=== PATIENT | male | born 1980 | race Caucasian/White ===

== ENCOUNTER 2021-06-24 11:35 | Inpatient (IN) | payer OTHER ==
[~2021-06-24] VITALS: Ht 185.4 cm; Wt 99.3 kg
--- NOTE | ~2021-06-24 | EMS ---
[place] [address] EMS Patient Care Report Name: LJ TOMAS Room #: 204-P [facility]..#: [id number] Admission: 06/24/21 Attend Phys: Alysa Shetty MD Discharge: 06/25/21 Date of : 78 Report #: [id number] THIS REPORT FOR: //name// Report Transmitted: 06/29/2021 14:07 EMS Care Summary [place], [place]/[facility] Incident [id number] @ 06/24/2021 11:00 Incident Location [facility] [address] [place] [address] Patient LJ TOMAS Male, 41 Years 1980 Patient Address [address] [place] [address] Patient History Kidney/Renal Failure, Patient Allergies No known allergies, Patient Medications None Reported, Chief Complaint CHEST PAIN Disposition Transported Lights/[facility] Dispatch Reason Breathing Problem Transported To [facility] Narrative M42 WAS DISPATCHED FOR BREATHING PROBLEMS. UPN ARRIVAL THE PT WAS SITTING ON THE SIDE OF HIS BED. THE PT WAS IN OBVIOUS DISCOMFORT. THE PT DESCRIBED A SHARP AND CONSTANT PAIN IN THE MIDDLE OF HIS CHEST THAT STARTED "THIS MORNING". THE PT SAID HE HAD NEVER HAD THAT FEELING BEFORE AND [place] [address] EMS Patient Care Report Name: LJ TOMAS Room #: 204-P DIS IN [facility]#: [id number] Admission: 06/24/21 Attend Phys: Alysa Shetty MD Discharge: 06/25/21 Date of : [birth year] Report #: [id number] HISTORY. THE PT HAD RENAL FAILURE AND HAD MISSED HIS LAST DIALYSIS APPOINTMENT TWO DAYS PRIOR. THE PT ALSO HAD SWELLING TO HIS LOWER EXTREMITIES THAT HE SAID HAD BEEN THERE FOR THE PAST WEEK BUT WAS NOT NORMALLY LIKE THAT. A 12 LEAD WAS DONE WHILE THE PT WAS STILL IN BED. THE 12 LEAD DID NOT SHOW ANY SIGNIFICANT FINDINGS. THE PT WAS MOVED TO THE AMBULANCE. A SECOND 12 LEAD WAS TAKEN IN THE AMBULANCE THAT REVEALED A POSSIBLE ANTEROLATERAL NH. THE CHEST PAIN/CARDIAC EVENT ALGORITHM WAS FOLLOWED THE PT WAS TRANSPORTED TO THE HOSPITAL. THE PT WAS TRANSFERRED TO HOSPITAL STAFF WITH A REPORT. EMS RETURNED TO SERVICE. Initial Vitals @11:15P: 101,Pain: 4/10,GCS: 15,SpO2: 90,NH Suspected: false @11:23P: 104,R: 18,Pain: 4/10,GCS: 15,SpO2: 87,NH Suspected: true @11:15P: 101,R: 18,Pain: 4/10,GCS: 15,SpO2: 94,NH Suspected: true @11:29P: 103,R: 18,BP: 95/48,Pain: 4/10,GCS: 15,SpO2: 94,Revised Trauma: 12,NH Suspected: true @11:07P: 103,R: 18,BP: 109/66,Pain: 4/10,GCS: 15,CO: 0,SpO2: 96,Revised Trauma: 12, @11:07P: 102,R: 20,Pain: 4/10,GCS: 15,SpO2: 94,NH Suspected: false Assessments @11:07MENTAL:Person Oriented,Place Oriented,Time Oriented,Event Oriented,SKIN:HEENT:Head/Face: No Abnormalities,Eyes: No Abnormalities,Neck/Airway: No Abnormalities,LUNG SOUNDS:General: No Abnormalities,ABDOMEN:General: No Abnormalities,PELVIS//GI:No Abnormalities,EXTREMITIES:Right Leg: Edema,Left Leg: Edema,Left Arm: Other,Right Arm: No Abnormalities,PULSE:Radial: 2+ Normal,NEURO: Impression Chest Pain / Discomfort Procedures @11:07 12-Lead ECG Response: UnchangedSucceeded @11:15 12-Lead ECG Response: UnchangedSucceeded @11:23 12-Lead ECG Response: UnchangedSucceeded @11:07 3-Lead ECG Response: UnchangedSucceeded @11:07 ALS Assessment Response: UnchangedSucceeded @11:16 Aspirin - 324 Milligrams (mg) - Oral Response: Unchanged @11:17 Oxygen FlowRate: 4 Device: Nasal Cannula (NC) Response: UnchangedSucceeded @11:16 IV Therapy - Saline Lock 0cc (22 ga) Site: Hand-Right Response: UnchangedFailed Timeline 10:59,Call Received 10:59,Dispatch Notified [address] [address] EMS Patient Care Report Name: LJ TOMAS Room #: 204-P [facility]#: [id number] Admission: 06/24/21 Attend Phys: Alysa Shetty MD Discharge: 06/25/21 Date of : [birth year] Report #: [id number] 11:00,Dispatched 11:02,En Route 11:06,On Scene 11:07,At Patient 11:07,ALS Assessment,Response: UnchangedSucceeded, 11:07,BP: 109/66 M,PULSE: 103,RR: 18 R,SPO2: 96 Ox,ETCO2: ,BG: ,PAIN: 4,GCS: 15, 11:07,12-Lead ECG,Response: UnchangedSucceeded, 11:07,3-Lead ECG,Response: UnchangedSucceeded, 11:07,BP: / M,PULSE: 102,RR: 20 R,SPO2: 94 Ox,ETCO2: ,BG: ,PAIN: 4,GCS: 15, 11:15,BP: / M,PULSE: 101,RR: R,SPO2: 90 Ox,ETCO2: ,BG: ,PAIN: 4,GCS: 15, 11:15,12-Lead ECG,Response: UnchangedSucceeded, 11:15,BP: / M,PULSE: 101,RR: 18 R,SPO2: 94 Ox,ETCO2: ,BG: ,PAIN: 4,GCS: 15, 11:16,Aspirin - 324 Milligrams (mg) - Oral,Response: Unchanged 11:16,IV Therapy - Saline Lock 0cc 22 ga Site: Hand-Right,Response: UnchangedFailed, 11:17,Oxygen FlowRate: 4 Device: Nasal Cannula (NC) Response: UnchangedSucceeded, 11:23,12-Lead ECG,Response: UnchangedSucceeded, 11:23,BP: / M,PULSE: 104,RR: 18 R,SPO2: 87 Ox,ETCO2: ,BG: ,PAIN: 4,GCS: 15, 11:24,Depart Scene 11:29,BP: 95/48 M,PULSE: 103,RR: 18 R,SPO2: 94 Ox,ETCO2: ,BG: ,PAIN: 4,GCS: 15, 11:32,At Destination 11:44,Call Closed Disclaimer v1.1 Copyright 2020 [employer] This EMS Care Summary contains data elements from the applicable legal record (which may be displayed differently). It is designed to provide pertinent information for the following purposes: continuity of care, clinical quality, and state data reporting. The complete legal record is available to ED staff and administrators of the receiving hospital in ES's Patient Tracker. All data is provided "as is."
[2021-06-24 11:36] VITALS: BP 123/83
--- NOTE | 2021-06-24 12:04 | NUR ---
UNABLE TO OBTAIN IV ACCESS. LAB AND IV TEAM CONTACTED.
[2021-06-24 12:41] LABS: ABSOLUTE NEUTROPHILS 6.7 thou/uL (1.4-8.2); BASOPHILS 0.5 % (0.0-2.0); EOSINOPHILS 0.9 % (0.0-3.0); HEMATOCRIT 28.4 % (42.0-52.0); LYMPHOCYTES 10.7 % (24.0-44.0); MCH 30.6 pg (26.0-34.0); MCHC 31.6 g/dL (28.0-37.0); MCV 96.7 fL (80.0-100.0); MONOCYTES 8.4 % (1.0-8.0); PLATELET COUNT 258 thou/uL (150-400); POLYS 79.5 % (36.0-66.0); RBC 2.93 mil/uL (4.50-6.00); RDW 16.2 % (10.5-14.5); WBC 8.4 thou/uL (4.0-11.0)
[2021-06-24 13:14] LABS: ALBUMIN 2.8 g/dL (3.4-5.0); CALCIUM 9.2 mg/dL (8.5-10.1); CREATININE 11.1 mg/dL (0.7-1.3); MAGNESIUM 2.7 mg/dL (1.8-2.4); PHOSPHORUS 9.4 mg/dL (2.6-4.7); TOTAL BILIRUBIN 0.7 mg/dL (0.2-1.0)
[2021-06-24 13:22] LABS: POTASSIUM 6.6 mmol/L (3.5-5.1)
[2021-06-24] MEDS ORDERED: ELIQUIS5 MG PO (14:16)
[2021-06-24] MEDS ORDERED: GABAPENTIN 100100 MG PO (14:20)
[2021-06-24 14:31] VITALS: BP 95/72
--- NOTE | 2021-06-24 14:44 | NUR ---
RT CALLED TO INQUIRE ABOUT THE BREATHING TREATMENT
--- NOTE | 2021-06-24 21:45 | NUR ---
attempted to call report to [facility] , not aware admit was coming to call back.
--- NOTE | 2021-06-24 21:51 | NUR ---
assessment pt a/o x4. writhing in pain. had a hydrocodone at 1700. dialysis completed av fistula in upper left arm with good bruit and trill. telemetry reading st with rates in 150's. reported soa and 2 liters o2 applied. pt to transfer to room 204.
--- NOTE | 2021-06-24 22:18 | NUR ---
Report given to Adele BOYER from [facility] pt transferred via cart to room 204. Cellphone, wallet, and orthopedic shoes placed in personal belongings bag and sent to unit with pt.
[2021-06-24 22:34] VITALS: BP 138/94
[2021-06-24] MEDS ORDERED: MORPHINE SULFAT30 M2 PO (22:36)
[2021-06-24] MEDS ORDERED: PERCOCET 10-321 EAC1 PO (22:37)
[2021-06-24] MEDS ORDERED: LIPITOR10 MG PO (22:38)
[2021-06-24] MEDS ORDERED: COREG25 M1 PO (22:39)
[2021-06-24] MEDS ORDERED: NORVASC10 MG PO (22:41)
[2021-06-25 00:14] VITALS: BP 121/96
[2021-06-25 01:06] LABS: HEP B SURFACE Ab(ANTI-HBS Reactive (()); HEPATITIS B SURFACE AG Negative (Negative)
[2021-06-25 01:32] LABS: HEMATOCRIT 27.3 % (42.0-52.0); HEMOGLOBIN 8.6 gm/dL (14.0-18.0); MCHC 31.5 g/dL (28.0-37.0); MCV 98.4 fL (80.0-100.0); RBC 2.77 mil/uL (4.50-6.00); RDW 16.6 % (10.5-14.5)
[2021-06-25 01:49] LABS: CALCIUM 9.1 mg/dL (8.5-10.1)
[2021-06-25 01:53] LABS: CREATININE 8.3 mg/dL (0.7-1.3); POTASSIUM 5.6 mmol/L (3.5-5.1)
--- NOTE | 2021-06-25 03:56 | NUR ---
REPORT RECEIVED FROM ED NURSE APPROX 220, PT ARRIVED TO FLOOR AT 2212. UPON ARRIVAL TO UNIT, PT ORIENTED TO ROOM, CONSENTS OBTAINED, ADMISSION PACKET PROVIDED, MEDICATIONS RECONCILED, BELONGINGS LOGGED. PT WITH MULTIPLE WOUNDS, REFUSING WOUND PICTURES AT TIME OF ADMISSION, REQUESTING TO HAVE PAIN MANAGED PRIOR TO PHOTO-DOCUMENTING WOUNDS. UPON ADMISSION ASSESSMENT, PT AOX4, WITH POOR VISION. PT REPORTING 8/10 GENERALIZED "ALL OVER". PT RECEIVING PRN PO NORCO Q6HR WITH PRN PO APAP Q4HR AVAILABLE. PT EXPRESSING MINIMUM PAIN RELIEF, REPORTING SOB WITH PAIN, REMAINS ON 2L O2 VIA NC, NO DESATURATIONS NOTED. NOTIFIED ONCALL MULT AU MATIC OPERATOR, NO ORDERS RECEIVED, COORDINATION OF CARE TO CONTINUE. PT TOLERATING PO INTAKE OF FLUIDS AND HEART HEALTHY DIET WITHOUT ISSUE. PT WITHOUT NAUSEA OR EMESIS. PT WITHOUT VOID THIS SHIFT, RECEIVING DIALYSIS WITH ANTICIPATION OF DIALYSIS ON FRIDAY. PT RESTING IN BED THROUGHOUT SHIFT, FREQUENT REPOSITIONING ENCOURAGED, PT NOTED TO SHIFT INDEPENDENTLY. SENSATION INTACT, CAPILLARY REFILL LESS THAN 3SEC, RADIAL PULSES PALPABLE, PEDAL PULSES WEAK TO PALPATION. PT ENCOURAGED TO NOTIFY STAFF FOR ALL NEEDS, CALL LIGHT WITHIN REACH, BED ALARM ON, BED LOCKED IN LOWEST POSITION, FREQUENT MONITORING WILL CONTINUE.
[2021-06-25 04:16] VITALS: BP 118/53
[2021-06-25 07:26] VITALS: BP 109/67
--- NOTE | 2021-06-25 07:37 | EKG ---
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
--- NOTE | 2021-06-25 07:39 | EKG ---
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 : 1980 Requested By: Jose Nieves Order Number: [id number] MD: Candido Borrero Measurements Intervals [place] Rate: 138 P: 166 [place]: 56 QRS: -16 QRSD: 126 T: 116 QT: 332 QTc: 503 Interpretive Statements AFIB Nonspecific intraventricular conduction delay Compared to ECG 06/24/2021 11:39:59 T-wave abnormality now present Sinus tachycardia no longer present Left bundle-branch block no longer present Electronically Signed On 06-25-2021 7:38:40 RAMP AND CARGO SUPERVISOR by Candido Borrero [email or web address] <ELECTRONICALLY SIGNED> By: Candido Borrero MD, [facility] 06/25/21 0738 1406 140 Candido Borrero MD, [facility] /EPI
--- NOTE | 2021-06-25 08:21 | NUR ---
Paged physician regarding critical lactic level @ 4.8. No addt. orders. Per physician, don't need to page critical value again.
[2021-06-25 13:22] VITALS: BP 160/84
[2021-06-25 14:38] VITALS: BP 105/62
[2021-06-25 15:29] LABS: BE(vivo) -5.5 mmol/L (-2 to +3); HCO3 16.9 mmol/L (22.0-26.0); PO2 326.7 mmHg (80.0-100.0); pH 7.479 (7.360-7.450); sO2 99.8 % (92.0-98.0)
[2021-06-25 15:30] LABS: PCO2 23.3 mmHg (35.0-45.0)
--- NOTE | 2021-06-25 15:54 | EKG ---
[address] [address] ELECTROCARDIOGRAM REPORT Name: GENOVEVALJ Barbour Room #: 204-P ADM IN M.R.#: [id number] Admission: 06/24/21 Attend Phys: Alysa Shetty MD Discharge: Date of : [birth year] Report #: [id number] [facility] Test Date: 2021-06-25 Test Time: 15:15:31 Pat Name: LJ TOMAS Department: Room: 204 P Gender: M It Data Architect: ZAHRA : 1980 Requested By: Jaison De Paz Order Number: [id number] MD: Candido Borrero Measurements Intervals [place] Rate: 68 P: 42 IN: 139 QRS: -3 QRSD: 134 T: 25 QT: 449 QTc: 478 Interpretive Statements Sinus rhythm Atrial premature complex Compared to ECG 06/24/2021 14:06:16 Atrial premature complex(es) now present Atrial fibrillation no longer present Intraventricular conduction delay no longer present Electronically Signed On 06-25-2021 15:53:51 RAILWAY ENGINEER by Candido Borrero [email or web address] <ELECTRONICALLY SIGNED> By: Candido Borrero MD, [facility] 06/25/21 1553 1515 1515 Candido Borrero MD, [facility] /EPI
--- NOTE | 2021-06-25 15:54 | NUR ---
NOTIFIED PATIENT'S DAUGHTER OF BECCA ESPINOZA, TIANNA RAFA [phone]. TIANNA STATES THAT SHE IS ON HER WAY TO THE HOSPITAL NOW.
--- NOTE | 2021-06-25 17:18 | NUR ---
CALLED RAT ON PT AFTER DIALYSIS. PT WAS COMPLAINING OF "NOT FEELING RIGHT." DIALYSIS NURSE DISCONTINUED DIALYSIS. PT HAD ELEVATED HR THROUGHOUT DIALYSIS WITH SOFT BLOOD PRESSURES; DR BRAGA CALLED, CARDIOLOGY CALLED. PT CONTINUED TO C/O DIFFICULTY BREATHING AND INTERMITTENT CHEST PAIN, CLAIMING HE WANTED TO SIT UP. DIALYSIS NURSE STATED PT HAD SEIZURE LIKE ACTIVITY AND WAS SLOW TO RESPOND. PT APPEARED SOA, UNABLE TO GET O2 SATURATION ON FINGERS OR FOREHEAD. ABG DRAWN, CHEST XRAY, CONTINUOUS VS TAKEN, WITH LOW BP. PT WAS PLACED IN [place] TO ATTEMPT TO BRING UP BP. PT PLACED ON NON BREATHER MASK TO ASSIST WITH O2 SATS. PT CONTINUED TO C/O CHEST PAIN AND ELEVATED HEAD WITH A PILLOW. PT BP CONTINUED TO RUN 80s/50s. PT BECAME UNRESPONSIVE TO STERNAL RUB. CPR INTITATED 1548 AND BECCA ESPINOZA CALLED. DR MARTINEZ CALLED. DR BRAGA CALLED. DR FAYE CALLED. PT HAD PEA WITH AGONAL BREATHING. CALCIUM GIVEN. BICARB GIVEN. EJ PLACED FOR DRUG PLACEMENT. TPA GIVEN. FAMILY CALLED. PT AT 1638.
--- NOTE | 2021-06-26 12:23 | HC ---
[facility] [place] [address] CONSULTATION Name: LJ TOMAS Angle Room #: 204-P [facility]..#: [id number] Admission: 06/24/21 Attend Phys: Alysa Shetty MD Discharge: 06/25/21 Date of : [birth year] Report #: [id number] THIS REPORT FOR: cc: NO FAMILY PHYSICIAN or PCP NO FAMILY PHYSICIAN or PCP Alonzo Vergara MD ~ DATE OF SERVICE: 06/25/2021 CHIEF COMPLAINT: Sacral and right heel ulcerations. HISTORY OF PRESENT ILLNESS: This is a 41-year-old male patient with history of diabetes and end-stage renal disease requiring dialysis, who was admitted to the hospital yesterday with concerns for possible non-ST segment elevated myocardial infarction. He apparently had missed his dialysis on Friday. Evaluation in the ER, however, revealed no myocardial infarction. He is noted to have ulcerations to his sacrum, left foot and right heel that have been present for which he states over a couple of years. They have not been improving. He states that he has had a biopsy proven diagnosis of calciphylaxis. He has been followed by Dr. Angel Perdomo at [facility]. PAST MEDICAL HISTORY: Positive for diabetes mellitus, hypertension, end-stage renal disease requiring hemodialysis, calciphylaxis, chronic pain, history of medical noncompliance. MEDICATIONS: Include acetaminophen, human albumin, hydrocodone, ondansetron, polyethylene glycol, sodium hypochlorite, Eliquis, amlodipine, Lipitor, carvedilol, gabapentin, morphine sulfate. ALLERGIES: FENTANYL. FAMILY HISTORY: Noncontributory. SOCIAL HISTORY: The patient does admit to use of marijuana. Denies alcohol or other tobacco use. REVIEW OF SYSTEMS: CONSTITUTIONAL: The patient denies fever, chills or weight loss. NEUROLOGICAL: The patient denies focal weakness, or tingling. EYES: The patient denies visual changes, redness or drainage. ENT: The patient denies earache, nasal drainage, sore throat. CARDIOVASCULAR: The patient denies chest pain, palpitations, diaphoresis. PULMONARY: The patient denies cough or shortness of breath. GASTROINTESTINAL: The patient denies nausea, vomiting, diarrhea or abdominal pain. ORTHOPEDIC: The patient is aware of the ulceration to his right heel, left foot and sacral region. [address] [address] CONSULTATION Name: LJ TOMAS Angle Room #: 204-P [facility] ..#: [id number] Admission: 06/24/21 Attend Phys: Alysa Shetty MD Discharge: 06/25/21 Date of : [birth year] Report #: [id number] Others systems in a 14-point review of systems are negative. PHYSICAL EXAMINATION: VITAL SIGNS: The patient's vital signs at this time include temperature 36.3, pulse 75, respiratory rate of 20, blood pressure 109/67. GENERAL: This is a chronically ill-appearing male patient who appears to be in mild distress. HEENT: Head normocephalic. Nose and throat clear. NECK: Supple. LUNGS: Clear. ABDOMEN: Soft, obese, nontender. EXTREMITIES: Examination of the sacral region demonstrates what appears to be a stage 4 pressure ulceration of the sacral region. There is a mix of granulation and fibrin present at this time, it is not overtly infected. Right heel demonstrates also what appears to be a stage 4 pressure ulceration with bone and fascia palpable in the base. There is granulation tissue. There is moderate odor however. The left foot demonstrates evidence of prior left fifth ray resection. He has a soft area with dry stable eschar overlying the lateral mid foot on the left side. NEUROLOGIC: The patient is alert and oriented. LABORATORY DATA: Include sodium 131, potassium 5.2, chloride 92, CO2 of 22, BUN 80, creatinine is 8.3, glucose 162. White blood cell count is 9000 with a hemoglobin of 8.6, hematocrit of 27.3. CLINICAL IMPRESSION: 1. Stage 4 sacral pressure ulceration. 2. Stage 4 pressure ulceration of the right heel. 3. Unstable pressure ulceration of the left lateral foot. 4. End-stage renal disease requiring hemodialysis. 5. Type 2 diabetes mellitus. 6. History of calciphylaxis per patient report. 7. History of medical noncompliance. 8. Hypertension. RECOMMENDATIONS: At this point in time, we will recommend a low air loss surface with q. 2 hour turning and positioning. We will consider a wound VAC to the sacral region. I am reluctant to perform any debridement with his history of calciphylaxis to the left heel, we will recommend quarter strength Dakin's moist gauze, ABD, Kerlix, and Willard wrap. He will need Prevalon boots to both feet, Betadine paint to the left foot. He will need ongoing nutritional support, and we might want to consider sodium thiosulfate added post-dialysis [address] [address] CONSULTATION Name: LJ TOMAS Room #: 204-P DIS IN Ginny.R.#: [id number] Admission: 06/24/21 Attend Phys: Alysa Shetty MD Discharge: 06/25/21 Date of : [birth year] Report #: [id number] with his underlying history of calciphylaxis. I appreciate being asked to see him in consultation. <ELECTRONICALLY SIGNED> By: Alonzo Vergara MD 06/26/21 1223 1131 214 Alonzo Vergara MD /nt
== END 2021-06-25 16:38 | DRG 640 ==
LOC: ER 11:35 → EROBS 15:06 → 2N 15:06 → EROBS 15:35 → 2N 22:12
PROVIDERS: Emergency Medicine; Internal Medicine; Internal Medicine Nephrology; Nurse Practitioner Family; ADMIT Internal Medicine; ATTEND Internal Medicine
PROC: 5A1D70Z Performance of Urinary Filtration, Intermittent, Less than 6 Hours Per Day (ICD-10-PCS; principal; 2021-06-24)
PROC: 3E03317 Introduction of Other Thrombolytic into Peripheral Vein, Percutaneous Approach (ICD-10-PCS; 2021-06-25)
PROC: 5A12012 Performance of Cardiac Output, Single, Manual (ICD-10-PCS; 2021-06-25)
PROC: 5A1D70Z Performance of Urinary Filtration, Intermittent, Less than 6 Hours Per Day (ICD-10-PCS; 2021-06-25)
DX: E87.5 Hyperkalemia (principal); L89.154 Pressure ulcer of sacral region, stage 4; N18.6 End stage renal disease; J96.01 Acute respiratory failure with hypoxia; G93.41 Metabolic encephalopathy; L89.614 Pressure ulcer of right heel, stage 4; I21.4 Non-ST elevation (NSTEMI) myocardial infarction; J81.1 Chronic pulmonary edema; I12.0 Hypertensive chronic kidney disease with stage 5 chronic kidney disease or end stage renal disease; I46.9 Cardiac arrest, cause unspecified; R00.0 Tachycardia, unspecified; R77.8 Other specified abnormalities of plasma proteins; Z20.822 Contact with and (suspected) exposure to COVID-19; F12.90 Cannabis use, unspecified, uncomplicated; E87.70 Fluid overload, unspecified; E66.01 Morbid (severe) obesity due to excess calories; G89.29 Other chronic pain; S91.301A Unspecified open wound, right foot, initial encounter; E11.22 Type 2 diabetes mellitus with diabetic chronic kidney disease; S31.819A Unspecified open wound of right buttock, initial encounter; L89.890 Pressure ulcer of other site, unstageable; I48.91 Unspecified atrial fibrillation; E78.5 Hyperlipidemia, unspecified; Z88.8 Allergy status to other drugs, medicaments and biological substances; Z68.28 Body mass index [BMI] 28.0-28.9, adult; Z91.14 Patient's other noncompliance with medication regimen; X58.XXXA Exposure to other specified factors, initial encounter; Y93.89 Activity, other specified; Y92.89 Other specified places as the place of occurrence of the external cause; Y99.8 Other external cause status
CPT/HCPCS: 10081; 32100